=== PATIENT | male | born 1960 | race Caucasian/White ===

== ENCOUNTER 2018-06-22 08:33 | Day surgery (SDC) | payer BC ==
[2018-06-20 14:38] VITALS: BMI 37.3
[~2018-06-22 08:33] MED LIST: LACTATED RINGERS 1,000 ML IV SCH; LIDOCAINE 1% 20 ML VIAL (10MG/ML) FOR IV START INTRADERMA PRN
[2018-06-22 09:31] VITALS: TEMP 97.9
[2018-06-22] MEDS ORDERED: FAMOTIDINE 20 MG/2 ML VIAL IV ONE (09:41)
[2018-06-22] MEDS ORDERED: PROPOFOL 10 MG/ML 20 ML VIAL IV ONE (10:17)
[2018-06-22] MEDS ORDERED: LIDOCAINE 1% INJ 10MG/ML (20 ML MDV) ONE (10:17)
--- NOTE | 2018-06-22 10:41 | P.PCN ---
Date of Procedure: 06/22/18 Procedure(s) Performed: Procedure: Esophagogastroduodenoscopy and biopsy. Preoperative diagnosis: Epigastric pain. Postoperative diagnosis: Small sliding hiatal hernia with no obvious esophagitis or complicated reflux disease. Mild antral gastritis. Multiple biopsies obtained from the duodenum, antrum and esophagus. Preparation and sedation: Was provided by anesthesia. Brief clinical history: The patient is a 57-year-old male who is scheduled for this evaluation because of epigastric pain off around 6 months duration. He had prior cholecystectomy. The patient did not respond to acid suppressive therapy. This evaluation is to rule out computed complicated reflux disease, peptic ulcer disease or other pathology. Procedure: With the patient on his left lateral decubitus position and after informed consent and adequate sedation, I passed the Olympus-GIF 190 H video upper endoscope through the cricopharyngeus down the esophagus. GE junction was around 40 cm from the incisors and there was a small sliding hiatal hernia but no obvious esophagitis or complicated reflux disease. The endoscope was then passed into the stomach which was insufflated with air and inspected in detail including the retroflex view in the cardia. There was some mottling and erythema in the antrum but no ulcers or erosions. Pyloric channel, duodenal bulb, post bulbar area and descending duodenum appeared within normal limits. Because of his symptoms, I obtained biopsies from the duodenum, antrum and esophagus then the endoscope was withdrawn. The patient tolerated the procedure well. Plan: The patient was reassured. Will await biopsy results and make further plans based on his course and biopsy results. He will follow up with you as planned and I will be happy to see in the office if his symptoms persist.
[2018-06-22 11:03] VITALS: BP 125/74; PULSE 66; RESP 16
== END 2018-06-22 11:12 | disposition home or self-care (01) ==
LOC: ORWHC2ENDO 08:33
DX: K29.50 Unspecified chronic gastritis without bleeding (principal); K44.9 Diaphragmatic hernia without obstruction or gangrene; K21.9 Gastro-esophageal reflux disease without esophagitis; I10 Essential (primary) hypertension; E78.5 Hyperlipidemia, unspecified; Z90.49 Acquired absence of other specified parts of digestive tract; Z79.899 Other long term (current) drug therapy
CPT/HCPCS: 88305; 43239; J2001; J2704

== ENCOUNTER → 2023-09-23 | Outpatient (CLI) | payer BC ==
--- NOTE | 2023-09-23 14:28 | CT ---
EXAMINATION TYPE: CT abdomen pelvis wo con DATE OF EXAM: 09/23/2023 COMPARISON: None HISTORY: right flank pain CT DLP: 1203 mGycm Automated exposure control for dose reduction was used. TECHNIQUE: Helical acquisition of images was performed from the lung bases through the pelvis. FINDINGS: The lungs are clear. There is surgical absence of the gallbladder. There is no biliary ductal dilatation. There is no organomegaly of the liver, pancreas, spleen or adrenal glands. There is a 2 to 3 mm nonobstructing left renal calculus. There is no hydronephrosis bilaterally. Ther e is a large cortical cyst of the right kidney. There is a 7.3 mm hyperdense mass in the posterior ri ght renal cortex which most likely represents hyperdense or hemorrhagic cyst. MRI of the kidneys woul d be useful for further evaluation. There are multiple phleboliths within the pelvis and the possibil ity of a small distal right ureteral calculus cannot be entirely excluded but there is no hydroureter or hydronephrosis of the right kidney. There are scattered prosthetic calcifications but no enlargement of the prostate gland. The caliber of the abdominal aorta is normal and there is no retroperitoneal adenopathy or hemorrhage . The bowel loops are normal in caliber is no evidence of obstruction. No inflammatory changes are iden tified in the mesentery and there is no free intraperitoneal air or fluid. There is no pelvic mass, free fluid, abscess or adenopathy. There is mild diverticulosis of the colon without CT evidence of diverticulitis. The osseous structures and soft tissues are unremarkable. IMPRESSION: 1. The possibility of a tiny distal right ureteral calculus cannot be entirely excluded. There are nu merous phleboliths in the pelvis in the region of the distal ureters. There is no right hydroureter o r right hydronephrosis. 2. 2- 3 mm nonobstructing left renal calculus. 3. Large right renal cyst. 4. 7 mm hyperdense mass of the posterior right kidney most likely representing a hemorrhagic or prote inaceous cyst. MRI would be useful for further evaluation.
== END | disposition home or self-care (01) ==
LOC: RADCTMAIN 13:48
PROVIDERS: ATTEND Family Medicine
DX: N28.1 Cyst of kidney, acquired (principal); N20.0 Calculus of kidney; N28.89 Other specified disorders of kidney and ureter; I87.8 Other specified disorders of veins; M54.50 Low back pain, unspecified; Z90.49 Acquired absence of other specified parts of digestive tract
CPT/HCPCS: 74176

== ENCOUNTER → 2023-10-11 | Outpatient (CLI) | payer BC ==
--- NOTE | 2023-10-11 10:24 | MR ---
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 COMPARISON: CT scan abdomen from 09/23/2023. TECHNIQUE: Multiplanar multi-sequence imaging was performed without contrast. Post contrast imaging was performed. Post IV contrast subtraction images were also submitted for review. IV Contrast: 11 cc Gadavist FINDINGS: LOWER CHEST: No gross irregularity. ABDOMEN Liver: No evidence for hepatic steatosis or cirrhosis. Gallbladder and Bile ducts: No evidence for ductal dilation, or biliary stricture or evidence of chol edocholithiasis. The gallbladder is within normal limits. Pancreas: No ductal dilation. No evidence for solid mass. Spleen: Normal for size. Adrenal glands: Unremarkable. Kidneys: Multiple right-sided renal cysts largest posteriorly measuring up to 8.9 cm which is high T2 signal other cysts including the cyst in the posterior aspect of the right kidney demonstrates intri nsic high T1 signal foci including 301 image 16 image 17 image 37 image 45 and image 64. No significa nt postcontrast enhancement. No evidence for obstructive uropathy. No suspicious renal masses. Stomach and Bowel: No evidence for bowel wall thickening or evidence for obstruction. Retroperitoneum/Peritoneum: No evidence of pneumoperitoneum or free fluid. Vasculature: No aortic aneurysm. Musculoskeletal: The osseous structures appear intact. Lymph Nodes: No gross evidence for lymphadenopathy. Abdominal wall: Unremarkable. IMPRESSION: 1. 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 There are multiple hemorrhagic/proteinaceous cysts in t he right kidney including the lesion of concern on prior CT. Dominant right simple appearing renal cy st is also present. No suspicious renal masses. 2. Hepatic steatosis.
== END | disposition home or self-care (01) ==
LOC: RADMRIMAIN 06:03
PROVIDERS: ATTEND Family Medicine
DX: D30.10 Benign neoplasm of unspecified renal pelvis (principal); N20.0 Calculus of kidney; N28.1 Cyst of kidney, acquired; K76.0 Fatty (change of) liver, not elsewhere classified; R93.49 Abnormal radiologic findings on diagnostic imaging of other urinary organs
CPT/HCPCS: 74183; A9585